=== PATIENT | female | born 1980 | race Caucasian/White ===

== ENCOUNTER 2018-01-03 14:49 | Inpatient (IN) ==
[2018-01-03] MEDS ORDERED: Ondansetron 4 MG/2 ML VIAL IVP ONE (14:58)
--- NOTE | 2018-01-03 15:13 | Emergency Department Note ---
Disposition Clinical Impression: Suicide attempt Overdose Qualifiers: Encounter type: initial encounter Injury intent: intentional self-harm Qualified Code(s): T50.902A - Poisoning by unspecified drugs, medicaments and biological substances, intentional self-harm, initial encounter Disposition: Admitted As Inpatient Condition: Fair Time of Disposition: 18:15 General Adult HPI - General Chief complaint: ED Overdose Stated complaint: OD/SI Time Seen by Provider: 01/03/18 14:52 Source: patient, EMS Mode of arrival: EMS Limitations: no limitations Nursing Notes Reviewed: Yes Vital Signs Reviewed: Yes - History of Present Illness HPI Narrative: Patient is a 37 year old female past medical history of anxiety, depression, and suicidal attempts presents for evaluation after overdose on medication which patient was attempting to kill herself. States that she works all the time and she has no familial support and she does not want to live anymore so she took multiple medications unknown amounts according to patient. Medications include Apriprazole, trazodone, Aleive, and possibly Tylenol. Patient states she is unsure of the amount. States in the past this is how she has attempted suicide before. The patient was found by her to be somnolent and he called 911. She states that she took the pills today she is unsure of which what time she took the medication. States she mainly just feels sleepy at this time denies any other symptoms except for nausea. Pain Scale: 0 - Related Data Home Medications Medication Instructions Recorded Confirmed Tylenol 08/28/16 Previous Rx's Medication Instructions Recorded Ibuprofen [Motrin] 800 mg PO Q8HR PRN #20 tablet 08/28/16 Clindamycin HCl [Cleocin HCl] 300 mg PO QID #28 capsule 01/31/17 cephALEXin [Keflex] 500 mg PO QID #28 capsule 01/31/17 Trazodone HCl 50 mg PO HS PRN #20 tablet 07/09/17 Allergies Allergy/AdvReac Type Severity Reaction Status Date / Time penicillin G Allergy Rash Verified 01/31/17 14:46 All systems ED: reviewed and negative except as stated. Review of Systems: As Per HPI Constitutional: Denies: fever Cardiovascular: Denies: chest pain, palpitations, dyspnea on exertion, syncope Respiratory: Denies: cough Gastrointestinal: Reports: nausea. Denies: abdominal pain, vomiting Genitourinary: Denies: urgency, dysuria Musculoskeletal: Denies: back pain, neck pain Integumentary: Denies: rash, lesions Neurological: Denies: headache, weakness, numbness, paresthesias, confusion Psychiatric: Reports: anxiety, depression, suicidal thoughts. Denies: homicidal thoughts, auditory hallucinations, visual hallucinations Past Medical History - Past Medical History Attestation: Yes The following information was validated with the patient. Medical history: Reports: no medical history, other Psychiatric history: Reports: anxiety, depression, previous psychiatric hospitalization RF MANAGER history: Reports: no RF MANAGER history - Social History Smoking Status: Current every day smoker Smokeless Tobacco Status: No Alcohol use: Reports: none Drug use: Reports: none Physical Exam CONSTITUTIONAL: Well-appearing; well-nourished; A&O X 3, in no apparent distress. Patient does appear somnolent on exam, however she points her eyes spontaneously, answers my questions in full sentences. Her vital signs are within normal limits. HEAD: Normocephalic; atraumatic EYES: PERRL, no scleral icterus NOSE: The nose is normal in appearance without rhinorrhea NECK: No JVD or distended neck veins RESP: Normal chest excursion with respiration; breath sounds clear and equal bilaterally; no wheezes, rhonchi, or rales CARD: Regular rhythm, without murmurs, rub or gallop ABD: Non-distended; non-tender, soft, without rigidity, rebound or guarding,no pulsatile mass CHEST: No pain with palpation SKIN: Normal for age and race; warm and dry without diaphoresis ; no apparent lesions EXTREMITIES: Pulses are 2 plus and equal times 4 extremities, no peripheral edema or calf muscle pain NEUROLOGICAL: Patient is alert and oriented times three. Cranial nerves III- XII are intact. Sensory and motor functions are intact. Strength is 5/5 for flexion and extension in all 4 extremities. Patellar DTRS are equal and intact. Finger to nose testing is equal and normal bilaterally. - General Limitations: no limitations General appearance: alert, in no apparent distress Course Course Narrative: Plan at this time is to order basic labs as well as an EKG to evaluate for patient's ingestion. We will also contact the Poison Control Center for further recommendations. Once medically clear the patient will be seen by the 118. She will be pink slipped. - Reevaluation(s) Reevaluation #1: Discussed the patient's case with the Poison Control Center they recommended adding on LFTs to evaluate for liver toxicity secondary to possible acetaminophen ingestion. Otherwise they requested that we attempt to determine at what time exactly the patient took the medication. I went back in the patient's room and she was more cooperative at this time in comparison when she first arrived. She states that she took the medication approximately 2:00 PM today and was witnessed by her she was sitting in her bed and she took them in front of him and that was when he called the squad. States that the medications that she take with the ones that she brought with her as artery discussed. She states that she is not currently on these medications she used to be on them. She denies taking any other medications other than the ones that we are aware of. Denies any history of having access to lithium or Depakote. We will recheck a acetaminophen level at 18:00. Time: 16:02 Reevaluation #2: Repeat acetaminophen for 4 hour level will be drawn at 18:[address] floor. Time: 19:49 Vital Signs Temperature 98.1 F 01/03/18 14:51 Pulse Rate 93 01/03/18 14:51 Respiratory Rate 12 01/03/18 14:51 Blood Pressure 105/68 01/03/18 14:51 O2 Sat by Pulse Oximetry 98 01/03/18 14:51 Temperature 98.6 F 01/03/18 18:33 Pulse Rate 93 01/03/18 18:33 Respiratory Rate 14 01/03/18 18:33 Blood Pressure 134/86 01/03/18 18:33 O2 Sat by Pulse Oximetry 99 01/03/18 16:11 Oxygen Delivery Oxygen Delivery Room Air Medical Decision Making - Medical Records Medical records reviewed: Yes I reviewed the patient's medical records. - Lab Data Lab results reviewed: Yes I reviewed the patient's lab results. Result diagrams: 01/03/18 15:34 01/03/18 15:34 Lab Results 01/03/18 01/03/18 01/03/18 Range/Units 15:15 15:20 15:20 WBC (4.3-11.1) K/mcL RBC (3.82-4.97) M/mcL Hgb (11.5-15.4) g/dL Hct (35.3-44.9) % MCV (83.0-100.0) fL MCH (28.0-33.3) pg MCHC (31.6-35.5) g/dL RDW (11.5-14.5) % Plt Count (140-400) K/mcL MPV (9.4-12.4) fL Immature Gran % (0-4) % Seg Neutrophils % % Lymphocytes % % Monocytes % % Eosinophils % % Basophils % % Neutrophils # (1.6-8.9) K/mcL Lymphocytes # (0.6-4.6) K/mcL Monocytes # (0.0-1.3) K/mcL Eosinophils # (0.0-0.6) K/mcL Basophils # (0.0-0.2) K/mcL Sodium (136-145) mEq/L Potassium (3.5-5.1) mEq/L Chloride (98-107) mEq/L Carbon Dioxide (23-29) mEq/L BUN (6-20) mg/dL Creatinine (0.60-1.20) mg/dL Est GFR ( Amer) (> 60) Est GFR (Non-Af Amer) (> 60) BUN/Creatinine Ratio (6-26) Glucose (70-105) mg/dL Calculated Osmolality (280-300) Calcium (8.6-10.3) mg/dL Total Bilirubin (0.3-1.0) mg/dL Direct Bilirubin (0.0-0.2) mg/dL Indirect Bilirubin (0.0-1.2) mg/dL AST (13-39) Units/L ALT (7-52) Units/L Alkaline Phosphatase (34-104) Units/L Serum Total Protein (6.4-8.9) g/dL Albumin (3.5-5.7) g/dL Globulin (2.4-3.5) g/dL Albumin/Globulin Ratio (1.1-2.2) Urine Color Dark Yellow (Yellow) Urine Clarity Cloudy A (Clear) Urine pH 6.0 (5.0-8.0) pH Units Ur Specific [place] > 1.030 H (1.010-1.025) Urine Protein 30 H (Neg-Trace) mg/dL Urine Glucose (UA) Normal (Normal) mg/dL Urine Ketones Negative (Negative) mg/dL Urine Blood Negative (Negative) Urine Nitrite Positive A (Negative) Urine Bilirubin Small H (Negative) Urine Urobilinogen Normal (Normal) mg/dL Ur Leukocyte Esterase Moderate H (Negative) Urine Microscopic RBC 0-3 (0-3) per hpf Urine Microscopic WBC 50-100 H (0-3) per hpf Ur Squamous Epith Cells Many H (None-Few) per lpf Urine Bacteria Many H (None-Few) per hpf Urine Test Negative (Negative) Salicylates (15.0-30.0) mg/dL Urine Opiates Screen Negative (Zivkri=238) ng/mL Acetaminophen (10-20) mcg/mL Ur Barbiturates Screen Negative (Qpzkes=923) ng/mL Ur Phencyclidine Scrn Negative (Cutoff=25) ng/mL Ur Amphetamines Screen Positive H (Vdghuu=1101) ng/mL U Benzodiazepines Scrn Negative (Ooiwyn=976) ng/mL Urine Cocaine Screen Negative (Cutoff= 300) ng/mL U Marijuana (THC) Screen Negative (Cutoff = 50) ng/mL Ethyl Alcohol (Less than 10) mg/dL 01/03/18 01/03/18 Range/Units 15:34 15:34 WBC 10.0 (4.3-11.1) K/mcL RBC 5.62 H (3.82-4.97) M/mcL Hgb 17.0 H (11.5-15.4) g/dL Hct 50.3 H (35.3-44.9) % MCV 89.5 (83.0-100.0) fL MCH 30.2 (28.0-33.3) pg MCHC 33.8 (31.6-35.5) g/dL RDW 13.2 (11.5-14.5) % Plt Count 223 (140-400) K/mcL MPV 10.0 (9.4-12.4) fL Immature Gran % 0.4 (0-4) % Seg Neutrophils % 71.9 % Lymphocytes % 19.2 % Monocytes % 6.1 % Eosinophils % 1.7 % Basophils % 0.7 % Neutrophils # 7.2 (1.6-8.9) K/mcL Lymphocytes # 1.9 (0.6-4.6) K/mcL Monocytes # 0.6 (0.0-1.3) K/mcL Eosinophils # 0.2 (0.0-0.6) K/mcL Basophils # 0.1 (0.0-0.2) K/mcL Sodium 135 L (136-145) mEq/L Potassium 4.1 (3.5-5.1) mEq/L Chloride 105 (98-107) mEq/L Carbon Dioxide 21 L (23-29) mEq/L BUN 16 (6-20) mg/dL Creatinine 0.67 (0.60-1.20) mg/dL Est GFR ( Amer) > 60 (> 60) Est GFR (Non-Af Amer) > 60 (> 60) BUN/Creatinine Ratio 24 (6-26) Glucose 117 H (70-105) mg/dL Calculated Osmolality 282 (280-300) Calcium 8.9 (8.6-10.3) mg/dL Total Bilirubin 0.4 (0.3-1.0) mg/dL Direct Bilirubin 0.1 (0.0-0.2) mg/dL Indirect Bilirubin 0.3 (0.0-1.2) mg/dL AST 16 (13-39) Units/L ALT 16 (7-52) Units/L Alkaline Phosphatase 69 (34-104) Units/L Serum Total Protein 6.8 (6.4-8.9) g/dL Albumin 3.9 (3.5-5.7) g/dL Globulin 2.9 (2.4-3.5) g/dL Albumin/Globulin Ratio 1.3 (1.1-2.2) Urine Color (Yellow) Urine Clarity (Clear) Urine pH (5.0-8.0) pH Units Ur Specific [place] (1.010-1.025) Urine Protein (Neg-Trace) mg/dL Urine Glucose (UA) (Normal) mg/dL Urine Ketones (Negative) mg/dL Urine Blood (Negative) Urine Nitrite (Negative) Urine Bilirubin (Negative) Urine Urobilinogen (Normal) mg/dL Ur Leukocyte Esterase (Negative) Urine Microscopic RBC (0-3) per hpf Urine Microscopic WBC (0-3) per hpf Ur Squamous Epith Cells (None-Few) per lpf Urine Bacteria (None-Few) per hpf Urine Test (Negative) Salicylates < 2.5 L (15.0-30.0) mg/dL Urine Opiates Screen (Kbzvww=901) ng/mL Acetaminophen < 10 L (10-20) mcg/mL Ur Barbiturates Screen (Dzocvz=483) ng/mL Ur Phencyclidine Scrn (Cutoff=25) ng/mL Ur Amphetamines Screen (Uusgam=9196) ng/mL U Benzodiazepines Scrn (Hzmvph=359) ng/mL Urine Cocaine Screen (Cutoff= 300) ng/mL U Marijuana (THC) Screen (Cutoff = 50) ng/mL Ethyl Alcohol < 10 (Less than 10) mg/dL - EKG Data EKG #1 EKG attestation: Yes I reviewed and interpreted this EKG. EKG results narrative: EKG done at 15:02 shows sinus rhythm at a rate of 69 bpm. Normal axis. No signs of ischemia. The patient does have abnormal T waves in lead V2 which are changed from prior EKG in November 2010. Her QRS is 78. QT is 402 and QTc is 421 these are within normal limits. Attestation Statement - Attestation Attestation: Patient was seen with resident physician. I reviewed the history, physical, assessment and plan, and agree with the findings. I also personally evaluated this patient and had [id number] time with this patient. 37-year-old female presents to the emergency department with suicide attempt via overdose with Apriprazole, trazodone, Aleive, and possibly Tylenol. Patient cannot recall a time exactly that she took a but says it was sometime today. She is found somnolent by her which ultimately prompted the visit to the emergency department. The patient acknowledges is a history of depression and anxiety as well as suicide attempts in the past. Currently she is easily arousable and answers all questions. Review of systems as above remainder negative. Physical exam vital signs are stable. ENT is unremarkable. Heart regular rhythm and rate. Lungs clear. Adamant soft nontender. Extremities unremarkable. Neurologically she is easily arousable. She follows all commands. She has no focal deficits. Skin no rashes. Psych patient obviously depressed. ED course we will do usual psych workup, we will contact poison control to discuss the medications that she took. Her initial EKG did not show acute changes. We will also place her on a temporary voluntary admission. Patient be likely sent to psychiatric unit for additional evaluation and treatment. Workup did not show any acute abnormalities. We did discuss this case with poison control who felt she was clinically stable based on the findings and lab reports. Psych did come and evaluate the patient. They agreed they need to admit her for inpatient management. Hemodynamically the patient remained stable medically cleared for psychiatric admission. I agree with the resident physician assessment and plan.
[2018-01-03 15:29] LABS: Bilirubin,Urine Small (Negative); Blood,Urine Negative (Negative); Clarity,Urine Cloudy (Clear); Color,Urine Dark Yellow (Yellow); Glucose,Urine (UA) Normal (Normal); Ketones,Urine Negative (Negative); Leukocyte Esterase,Urine Moderate (Negative); Nitrite,Urine Positive (Negative); Protein,Urine 30 mg/dL (Neg-Trace); Specific Gravity,Urine > 1.030 (1.010-1.025); Urobilinogen,Urine Normal (Normal)
[2018-01-03 15:32] LABS: Bacteria,Urine Many per hpf (None-Few); Squamous Epithelial Cell,Urine Many per lpf (None-Few); WBC,Urine 50-100 per hpf (0-3)
[2018-01-03 15:37] LABS: Amphetamine Screen,Urine Positive ng/mL (Cutoff=1000); Barbiturate Screen,Urine Negative ng/mL (Cutoff=200); Benzodiazepines Screen,Urine Negative ng/mL (Cutoff=200); Cannabinoid Screen,Urine Negative ng/mL (Cutoff = 50); Cocaine Screen,Urine Negative ng/mL (Cutoff= 300); Opiate Screen,Urine Negative ng/mL (Cutoff=300); Phencyclidine Screen,Urine Negative ng/mL (Cutoff=25)
[2018-01-03 15:44] LABS: RBC,Urine 0-3 per hpf (0-3)
[2018-01-03 15:45] LABS: Basophils # 0.1 K/mcL (0.0-0.2); Basophils % 0.7 %; Eosinophils # 0.2 K/mcL (0.0-0.6); Eosinophils % 1.7 %; Hematocrit 50.3 % (35.3-44.9); Immature Granulocytes % 0.4 % (0-4); Lymphocytes # 1.9 K/mcL (0.6-4.6); Lymphocytes % 19.2 %; Mean Corpuscular HGB Conc 33.8 g/dL (31.6-35.5); Mean Corpuscular Hemoglobin 30.2 pg (28.0-33.3); Mean Corpuscular Volume 89.5 fL (83.0-100.0); Monocytes # 0.6 K/mcL (0.0-1.3); Monocytes % 6.1 %; Neutrophils # 7.2 K/mcL (1.6-8.9); Platelet Count 223 K/mcL (140-400); Red Blood Count 5.62 M/mcL (3.82-4.97); Red Cell Distribution Width 13.2 % (11.5-14.5); Segmented Neutrophils % 71.9 %
[2018-01-03 17:15] LABS: Acetaminophen < 10 mcg/mL (10-20); Alanine Aminotransferase 16 Units/L (7-52); Albumin 3.9 g/dL (3.5-5.7); Albumin/Globulin Ratio 1.3 (1.1-2.2); Alkaline Phosphatase 69 Units/L (34-104); Aspartate Amino Transferase 16 Units/L (13-39); BUN/Creatinine Ratio 24 (6-26); Bilirubin,Direct 0.1 mg/dL (0.0-0.2); Bilirubin,Indirect 0.3 mg/dL (0.0-1.2); Bilirubin,Total 0.4 mg/dL (0.3-1.0); Blood Urea Nitrogen 16 mg/dL (6-20); Calcium 8.9 mg/dL (8.6-10.3); Carbon Dioxide 21 mEq/L (23-29); Chloride 105 mEq/L (98-107); Ethanol < 10 mg/dL (Less than 10); Globulin 2.9 g/dL (2.4-3.5); Glucose 117 mg/dL (70-105); Osmolality,Calculated 282 (280-300); Potassium 4.1 mEq/L (3.5-5.1); Salicylate < 2.5 mg/dL (15.0-30.0); Sodium 135 mEq/L (136-145); Total Protein 6.8 g/dL (6.4-8.9); eGFR For African Americans > 60 (> 60); eGFR For Non-African Americans > 60 (> 60)
[2018-01-03] MEDS ORDERED: Nicotine 14 MG PATCH.TD24 TD SCH (18:15)
[2018-01-03] MEDS ORDERED: traZODone 50 MG TABLET PO PRN (18:27)
[2018-01-03] MEDS ORDERED: *HR* LORazepam 2 MG/ML VIAL IM PRN (18:27)
[2018-01-03] MEDS ORDERED: *HR* LORazepam 1 MG TABLET PO PRN (18:27)
[2018-01-03] MEDS ORDERED: MOM Conc 10 ML UD.LIQ PO PRN (18:27)
[2018-01-03] MEDS ORDERED: Ibuprofen 400 MG TABLET PO PRN (18:27)
[2018-01-03] MEDS ORDERED: Haloperidol Lactate 5 MG/ML VIAL IM PRN (18:27)
[2018-01-03] MEDS ORDERED: Mag Hydrox/Al Hydrox/Simeth 30 ML UDC PO PRN (18:27)
[2018-01-03] MEDS: Nicotine 21 MG PATCH.TD24 TD SCH (21:38)
[2018-01-04] MEDS: Nicotine 21 MG PATCH.TD24 TD SCH (10:00)
--- NOTE | 2018-01-04 11:22 | Psychiatry History & Physical ---
Date of Encounter: 01/04/18 Time of Encounter: 10:45 History of Present Illness Patient Stated Chief Complaint: i feel exhausted Medicare Admission Attestation: For traditional Medicare patients the provided hospital inpatient services are reasonable and necessary and in the case of services not specified as inpatient -only under 42 CFR 419.22 (n), that they are appropriately provided as inpatient services in accordance 42 CFR 412.3. For Critical Access Hospital the patient may reasonably be expected to be discharged or transferred to a hospital within 96 hours after admission to the Critical Access Hospital. Admitted From: Emergency Dept Plans for Post Hospital Care: Home History of Present Illness: Ms. Crouch is a 37 year old female evaluated today ,s/p OD on multiple medications does not know how many and what . PER ED NOTE Patient is a 37 year old female past medical history of anxiety, depression, and suicidal attempts presents for evaluation after overdose on medication which patient was attempting to kill herself. States that she works all the time and she has no familial support and she does not want to live anymore so she took multiple medications unknown amounts according to patient. Medications include Apriprazole, trazodone, Aleive, and possibly Tylenol. Patient states she is unsure of the amount. States in the past this is how she has attempted suicide before. The patient was found by her to be somnolent and he called 911. She states that she took the pills today she is unsure of which what time she took the medication. States she mainly just feels sleepy at this time denies any other symptoms except for nausea. HPI : Ms Crouch is single white female with h/o depression , anxiety and substance use disorder, she lives with her BF , 16 yr old son and has been off medications for few years and her last admission to inpatient was 4 years ago. She has been feeling lately very anxious, arana , anger out burst , mind racing and poor sleep, she states she took medication for attention and cry for help , she does not want to kill her self but do not want to live like this,feels lonely as no one is supportive and helpful, she has depression s/s, hopeless, guilty and sad most of the time. she has no psychosis, no manic episode , has mind racing, impulsive , mood swings , anger out burst and poor insight and judgement. Past Psych History She has been in treatment for several years started at age 22 , she has 3 psych inpatient in past and suicidal ideation and attempts in past h/o non compliance with treatment as she feels medicine given was not helping. Substance use. Using methamphtamines for last 8-9 months and using daily and smokes a ball . denies any other drugs , no alcohol , smokes cig 1ppd. Family h/o Mother depression and anxiety aUNT ON MOTHER SIDE IS bIPOLAR . no suicide in family. Medical : s/p OD on abilify , trazodone and tyelenol. has one kidney , congenital. no other medical problems. At present patient is depress and hopeless had od on medications , need stabilization and management of depression for safety. Treatment d/w patient , she acknowledged and will start medication and supportive therapy given Past Med Surg Social Fam HX - Past Medical History Source: patient (has one kidney since ) Medical history: no medical history, other - Past Psychiatric History Psychiatric history: Reports: anxiety, depression, prior suicide attempt, previous psychiatric hospitalization Family psychiatric history: Yes Family History of Suicide: None - Social History Smoking Status: Current every day smoker Smokeless Tobacco Status: No Alcohol use: none Drug use: none Occupational status: employed Current living situation: Home, With Family Activity Level: Independent ambulation Recent Out of Country Travel Within the Last 8 Weeks: No Exposure or Possible Exposure to Illness During Travel: No Medications & Allergies 3 Allergy/AdvReac Type Severity Reaction Status Date / Time penicillin G Allergy Rash Verified 01/31/17 14:46 Review of Systems Constitutional: Denies: fever, chills, weakness, weight change Eyes: Denies: eye pain, vision change Ears, Nose, Throat: Denies: ear pain, throat pain, dental pain, hearing loss, congestion Cardiovascular: Denies: chest pain, palpitations, dyspnea on exertion Respiratory: Denies: cough, dyspnea, wheezes Gastrointestinal: Denies: abdominal pain, nausea, vomiting, diarrhea, constipation Genitourinary female: Denies: urgency, dysuria, frequency, abnormal menses, dyspareunia Musculoskeletal: Denies: joint swelling, joint pain Integumentary: Denies: rash, lesions, pruritus Neurological: Denies: headache, weakness, numbness, memory loss Psychiatric: Reports: depression, anxiety, suicidal ideation, hopelessness, irritability, mood swings Endocrine: Denies: fatigue, heat or cold intolerance Hematologic/Lymphatic: Denies: easy bruising, lymphadenopathy Allergic/Immunologic: Denies: urticaria, itchy eyes Exam - HEENT Head exam IM: Present: atraumatic Eye exam IM: Present: EOMI, normal appearance, PERRL ENT exam IM: Present: normal exam - Neurological Neurological exam: Present: CN II-XII intact - Respiratory Respiratory exam IM: Present: CTAB - GI/Abdominal GI/Abdominal exam IM: Present: normal bowel sounds, soft. Absent: tenderness - Extremities Extremities exam IM: Present: full ROM - Skin Skin exam IM: Present: dry, warm - Constitutional Vitals: Temp Pulse Resp BP Pulse Ox 99.3 F 80 11 90/58 99 01/04/18 09:00 01/04/18 09:00 01/04/18 09:00 01/04/18 09:00 01/03/18 16:11 General appearance: average - Musculoskeletal Gait: slow Station: relaxed Strength & Tone: normal for patient - Psychiatric Patient Orientation: Yes Person, Yes Time, Yes Place Level of alertness: Alert Behavior: cooperative, withdrawn Psychomotor activity: Normal Eye Contact: Minimal Contact Mood Description: Depressed, Anxious Affect description: congruent with mood Speech Volume: Soft/Quiet Speech pattern: slowed Language & Vocabulary: consistent with education Thought Process: Racing Thought Content: Yes Suicidal ideation, Yes Guilt Attention Span Ability: Unable to Sustain Attention Memory Description: Grossly Intact Patient Reliability: Reliable Historian Fund of knowledge: Yes average Intelligence Estimate: Average Judgment: Limited Insight: Minimal Results - Drug Levels and Toxicology Drug Levels and Toxicology: Drug Levels and Toxicity 01/03/18 19:29 Acetaminophen < 10 L - Labs Labs: Laboratory Last Values WBC 10.0 K/mcL (4.3-11.1) 01/03/18 15:34 RBC 5.62 M/mcL (3.82-4.97) H 01/03/18 15:34 Hgb 17.0 g/dL (11.5-15.4) H 01/03/18 15:34 Hct 50.3 % (35.3-44.9) H 01/03/18 15:34 MCV 89.5 fL (83.0-100.0) 01/03/18 15:34 MCH 30.2 pg (28.0-33.3) 01/03/18 15:34 MCHC 33.8 g/dL (31.6-35.5) 01/03/18 15:34 RDW 13.2 % (11.5-14.5) 01/03/18 15:34 Plt Count 223 K/mcL (140-400) 01/03/18 15:34 MPV 10.0 fL (9.4-12.4) 01/03/18 15:34 Immature Gran % 0.4 % (0-4) 01/03/18 15:34 Seg Neutrophils % 71.9 % 01/03/18 15:34 Lymphocytes % 19.2 % 01/03/18 15:34 Monocytes % 6.1 % 01/03/18 15:34 Eosinophils % 1.7 % 01/03/18 15:34 Basophils % 0.7 % 01/03/18 15:34 Neutrophils # 7.2 K/mcL (1.6-8.9) 01/03/18 15:34 Lymphocytes # 1.9 K/mcL (0.6-4.6) 01/03/18 15:34 Monocytes # 0.6 K/mcL (0.0-1.3) 01/03/18 15:34 Eosinophils # 0.2 K/mcL (0.0-0.6) 01/03/18 15:34 Basophils # 0.1 K/mcL (0.0-0.2) 01/03/18 15:34 Sodium 135 mEq/L (136-145) L 01/03/18 15:34 Potassium 4.1 mEq/L (3.5-5.1) 01/03/18 15:34 Chloride 105 mEq/L (98-107) 01/03/18 15:34 Carbon Dioxide 21 mEq/L (23-29) L 01/03/18 15:34 BUN 16 mg/dL (6-20) 01/03/18 15:34 Creatinine 0.67 mg/dL (0.60-1.20) 01/03/18 15:34 Est GFR ( Amer) > 60 (> 60) 01/03/18 15:34 Est GFR (Non-Af Amer) > 60 (> 60) 01/03/18 15:34 BUN/Creatinine Ratio 24 (6-26) 01/03/18 15:34 Glucose 117 mg/dL (70-105) H 01/03/18 15:34 Calculated Osmolality 282 (280-300) 01/03/18 15:34 Calcium 8.9 mg/dL (8.6-10.3) 01/03/18 15:34 Total Bilirubin 0.4 mg/dL (0.3-1.0) 01/03/18 15:34 Direct Bilirubin 0.1 mg/dL (0.0-0.2) 01/03/18 15:34 Indirect Bilirubin 0.3 mg/dL (0.0-1.2) 01/03/18 15:34 AST 16 Units/L (13-39) 01/03/18 15:34 ALT 16 Units/L (7-52) 01/03/18 15:34 Alkaline Phosphatase 69 Units/L (34-104) 01/03/18 15:34 Serum Total Protein 6.8 g/dL (6.4-8.9) 01/03/18 15:34 Albumin 3.9 g/dL (3.5-5.7) 01/03/18 15:34 Globulin 2.9 g/dL (2.4-3.5) 01/03/18 15:34 Albumin/Globulin Ratio 1.3 (1.1-2.2) 01/03/18 15:34 Urine Color Dark Yellow (Yellow) 01/03/18 15:20 Urine Clarity Cloudy (Clear) A 01/03/18 15:20 Urine pH 6.0 pH Units (5.0-8.0) 01/03/18 15:20 Ur Specific [place] > 1.030 (1.010-1.025) H 01/03/18 15:20 Urine Protein 30 mg/dL (Neg-Trace) H 01/03/18 15:20 Urine Glucose (UA) Normal mg/dL (Normal) 01/03/18 15:20 Urine Ketones Negative mg/dL (Negative) 01/03/18 15:20 Urine Blood Negative (Negative) 01/03/18 15:20 Urine Nitrite Positive (Negative) A 01/03/18 15:20 Urine Bilirubin Small (Negative) H 01/03/18 15:20 Urine Urobilinogen Normal mg/dL (Normal) 01/03/18 15:20 Ur Leukocyte Esterase Moderate (Negative) H 01/03/18 15:20 Urine Microscopic RBC 0-3 per hpf (0-3) 01/03/18 15:20 Urine Microscopic WBC 50-100 per hpf (0-3) H 01/03/18 15:20 Ur Squamous Epith Cells Many per lpf (None-Few) H 01/03/18 15:20 Urine Bacteria Many per hpf (None-Few) H 01/03/18 15:20 Urine Test Negative (Negative) 01/03/18 15:20 Salicylates < 2.5 mg/dL (15.0-30.0) L 01/03/18 15:34 Urine Opiates Screen Negative ng/mL (Ujljyg=559) 01/03/18 15:15 Acetaminophen < 10 mcg/mL (10-20) L 01/03/18 19:29 Ur Barbiturates Screen Negative ng/mL (Hkbpgk=158) 01/03/18 15:15 Ur Phencyclidine Scrn Negative ng/mL (Cutoff=25) 01/03/18 15:15 Ur Amphetamines Screen Positive ng/mL (Rimtbm=6107) H 01/03/18 15:15 U Benzodiazepines Scrn Negative ng/mL (Jkjwug=778) 01/03/18 15:15 Urine Cocaine Screen Negative ng/mL (Cutoff= 300) 01/03/18 15:15 U Marijuana (THC) Screen Negative ng/mL (Cutoff = 50) 01/03/18 15:15 Ethyl Alcohol < 10 mg/dL (Less than 10) 01/03/18 15:34 Assessment and Plan (1) Suicide attempt Current visit: Yes Status: Acute (2) Overdose Current visit: Yes Status: Acute Plan: Admit inpatient for safety and stabilization, Suicide Precautions per unit protocol, Encourage participation in unit milieu, Group Therapy, Monitor sleep, Monitor appetite, Secure weapons, Family/Supportive other meeting Additional Plan: will start patient on Effexor xr 37.5 mg ,and continue observation. Risks, benefits, side effects, alternatives discussed w/pt: Yes Patient agreeable to treatment: Yes Plans for Post Hospital Care: at Home Estimated Length of Stay (Days): 4 Qualifiers: Encounter type: initial encounter Injury intent: intentional self-harm Qualified Code(s): T50.902A - Poisoning by unspecified drugs, medicaments and biological substances, intentional self-harm, initial encounter (3) Bipolar II disorder Current visit: Yes Status: Acute Plan: Admit inpatient for safety and stabilization, Suicide Precautions per unit protocol, Encourage participation in unit milieu, Group Therapy, Monitor sleep, Monitor appetite, Secure weapons, Family/Supportive other meeting Risks , benefits, side effects, alternatives discussed w/pt: Yes Patient agreeable to treatment: Yes Plans for Post Hospital Care: at Home
[2018-01-04] MEDS: hydrOXYzine pamoate 25 MG CAPSULE PO PRN (21:33)
--- NOTE | 2018-01-05 07:08 | Electrocardiograph Report ---
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
[2018-01-05] MEDS: Nicotine 21 MG PATCH.TD24 TD SCH (08:44)
[2018-01-05] MEDS ORDERED: Venlafaxine XR (24 HR) 37.5 MG CAP.ER.24H PO SCH (09:00)
--- NOTE | 2018-01-05 10:38 | Psychiatry Progress Note ---
Date of Encounter: 01/05/18 Time of Encounter: 10:20 Subjective Interval history: Patient seen today , case d/w treatment team and patient still remains depress and isolative. Patient states she is depressed but not suicidal and does not want to hurt self , she is compliant at preseent , education given about importance of medication , she slept better last night , eating better , had lost weight before . she is denying any side effects. will increase effexor xr 75 mg and add lamictal 25 mg for her moods and depression , she agreed with treatment plan and informed consent btained. Review of Systems Psychiatric: Reports: depression, anxiety, suicidal ideation, hopelessness, irritability, mood swings Results - Vital Signs Vital Signs: Temp Pulse Resp BP Pulse Ox 98.1 F 107 18 133/99 99 01/05/18 08:44 01/05/18 08:44 01/05/18 08:44 01/05/18 08:44 01/03/18 16:11 Assessment and Plan (1) Suicide attempt Current visit: Yes Status: Acute (2) Overdose Current visit: Yes Status: Acute Risks, benefits, side effects, alternatives discussed w/pt: Yes Patient agreeable to treatment: Yes Qualifiers: Encounter type: initial encounter Injury intent: intentional self-harm Qualified Code(s): T50.902A - Poisoning by unspecified drugs, medicaments and biological substances, intentional self-harm, initial encounter (3) Bipolar II disorder Current visit: Yes Status: Acute Additional Plan: will add lamictal 25 mg and increase effexor to 75 mg . Risks, benefits, side effects, alternatives discussed w/pt: Yes Patient agreeable to treatment: Yes Consult Discharge Plan - Plan Psychiatry Exam - Constitutional Vitals: Temp Pulse Resp BP Pulse Ox 98.1 F 107 18 133/99 99 01/05/18 08:44 01/05/18 08:44 01/05/18 08:44 01/05/18 08:44 01/03/18 16:11 General appearance: average - Musculoskeletal Gait: slow Station: other Strength & Tone: normal for patient - Psychiatric Patient Orientation: Yes Person, Yes Time, Yes Place Level of alertness: Alert Behavior: cooperative, withdrawn Psychomotor activity: Slowed Eye Contact: Maintains Eye Contact Mood Description: Depressed, Anxious Affect description: congruent with mood Speech Volume: Normal Speech pattern: clear, coherent Language & Vocabulary: consistent with education Thought Process: Intact Thought Content: Yes Intact Attention Span Ability: Capable of Focused Attention Memory Description: Grossly Intact Patient Reliability: Reliable Historian Intelligence Estimate: Average Judgment: Limited Insight: Full
[2018-01-05] MEDS ORDERED: Venlafaxine XR (24 HR) 37.5 MG CAP.ER.24H PO ONE (13:02)
--- NOTE | 2018-01-05 16:28 | Electrocardiograph Report ---
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
[2018-01-05] MEDS ORDERED: lamoTRIgine 25 MG TABLET PO SCH (21:00)
[2018-01-05] MEDS: hydrOXYzine pamoate 25 MG CAPSULE PO PRN (21:06)
[2018-01-06] MEDS ORDERED: Venlafaxine XR (24 HR) 75 MG CAP.ER.24H PO SCH (09:00)
[2018-01-06] MEDS: Nicotine 21 MG PATCH.TD24 TD SCH (09:11)
[2018-01-06 09:29] VITALS: BP 134/95
--- NOTE | 2018-01-06 10:16 | Discharge Summary ---
Date of Encounter: 01/06/18 Time of Encounter: 09:55 Diagnosis - Discharge Diagnosis (1) Suicide attempt Status: Resolved Comments: patient not in imenent danger to self/others, not suicidal or homicidal. (2) Overdose Status: Resolved Qualifiers: Encounter type: initial encounter Injury intent: intentional self-harm Qualified Code(s): T50.902A - Poisoning by unspecified drugs, medicaments and biological substances, intentional self-harm, initial encounter (3) Bipolar II disorder Status: Acute Comments: patient has shown improvement in her moods and not impulsive and stable at present. Medications - Discharge Medications Prescriptions: lamoTRIgine [Lamictal] 25 mg PO HS #30 tablet Venlafaxine XR (24 HR) [Effexor XR] 75 mg PO DAILY #30 cap.er.24h Venlafaxine XR (24 HR) [Effexor XR] 75 mg PO DAILY #30 cap.er.24h 01/06/18 [Rx] lamoTRIgine [Lamictal] 25 mg PO HS #30 tablet 01/06/18 [Rx] 3 Allergy/AdvReac Type Severity Reaction Status Date / Time penicillin G Allergy Rash Verified 01/04/18 13:35 Provider Date of admission: 01/04/18 11:35 Primary care physician: PCP NONE Psychiatry Exam - Constitutional Vitals: Temp Pulse Resp BP Pulse Ox 98.5 F 78 16 134/95 99 01/06/18 09:00 01/06/18 09:00 01/06/18 09:00 01/06/18 09:00 01/03/18 16:11 General appearance: age & developmentally appropriate, well-groomed, well- nourished - Musculoskeletal Gait: normal Station: relaxed Strength & Tone: normal for patient - Psychiatric Patient Orientation: Yes Person, Yes Time, Yes Place Level of alertness: Alert Behavior: calm, cooperative Psychomotor activity: Normal Eye Contact: Maintains Eye Contact Mood Description: Euthymic/stable, Anxious Affect description: congruent with mood, full range Speech Volume: Normal Speech pattern: normal rate, normal rhythm, normal tone, fluent, spontaneous Language & Vocabulary: consistent with education Thought Process: Linear, Goal Oriented Thought Content: No Suicidal ideation, No Homicidal ideation, No Overt delusions Perceptual Disturbances: No Auditory hallucinations, No Visual hallucinations Attention Span Ability: Capable of Focused Attention Memory Description: Grossly Intact Patient Reliability: Reliable Historian Fund of knowledge: Yes average Intelligence Estimate: Average Judgment: Good Insight: Full Hospital Course Hospital course: Ms. Crouch is a 37 year old female was admitted from ED her Boy friend called ambulance as she took handfull of medications in front of him. patient took her old medications , she was depress and suicidal in ED. 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 States had realized stopping medications and using meth made me not who i am so has gained insight in not using meth and agreed to go for counselling and will be compliant with medication. she was started on effexor xr and lamictal , she had 2 times EKG done as per recommendations from poison control and it remained sinus rhythm and same findins in both, she denied any chest pain or SOB. During her course she attended groups and lilieu therapy and coping skills and compliance education given. she denied side effects and since day 1 no suicidal ideation as she never want to hurt self it was impulsive and was angry at Boy friend. 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 WILLbe discharged to family with follow up plan which were d/w her in detail. Time spent discussing smoking cessation with patient: 3 to 10 minutes Does patient wish to continue nicotine replacement upon disc: No (patient has been cutting down on her own and does not want NRT) - Time Spent with Patient Total time spent providing and/or coordinating discharge services: Greater than 30 minutes Assessment and Plan - Patient/Caregiver Discharge Instructions Activity: resume usual activities as tolerated Diet: regular diet - Follow up Plan Follow up with: [facility] [Outside] - 01/21/18 1:30 pm (The above appointment is with Dr. Pagan for primary care. Please bring photo ID and current list of medications. Please arrive 10-15 minutes before your appointment time. ) [facility] [Outside] - 01/26/18 2:00 pm (The above appointment is with Elizabeth sky* 01/26/18 at 2:00pm. *Please bring completed [facility] intake packet that you were provided at the hospital to your appointment. You also need to bring proof of income, photo ID and insurance card to appointment. Please be early to fill out paperwork. If you have to cancel, call at [facility] 24 hours in advance.) Overall status at discharge: Stable Disposition: Home, Self-Care Quality - Multiple Antipsychotics Patient discharged on 2 or more antipsychotic medications: No Procedures - Procedures Procedures: Medication Management, Crisis Stabilization, Supportive Therapy, Group Therapy, Psychoeducational Therapy
[2018-01-06] MEDS ORDERED: Venlafaxine XR (24 HR) 37.5 MG CAP.ER.24H PO ONE (12:30)
== END 2018-01-06 13:44 | disposition home or self-care (01) | DRG 812 ==
LOC: 1ANU 14:49 → EMEROO 14:49 → 1ANU 18:25
PROVIDERS: ADMIT Psychiatry & Neurology Psychiatry; ATTEND Psychiatry & Neurology Psychiatry